=== PATIENT | female | born 1990 | race Native Hawaiian/Other Pacific Islander ===

== ENCOUNTER 2018-02-11 23:25 | Inpatient (IN) ==
[2018-02-11] MEDS ORDERED: LR 1,000 ML IV SCH (23:45)
[2018-02-11] MEDS ORDERED: AMPICILLIN 2 GM/NS 2 GM/100 ML IVPB IV ONE (23:58)
--- NOTE | 2018-02-12 00:26 | H&P REVIEW ---
H&P Update H&P Review: H&P was reviewed and patient was examined, No change has occurred in the patient's condition Document any changes: Triage H&P reviewed from earlier. Patient discharged to home at 9:15pm. Contractions on monitoring but no cervical change as still at 2 /70/-2 and mid position. Patient wanted to go home and come back if stronger. States went home, walked some and about 10:30pm thinks her water broke as she "felt wet." States her contractions are now a lot stronger and hurting. Good movement. No vaginal bleeding. Cousin brought her back in. On my exam no leak with valsalva and no pooling. On exam I do NOT feel bag of water. Head well applied. Patient is 3-4/80 and -1 station. Cervix is anterior. There was no return of fluid with check. ROM + sent and positive. Contractions now about 2-3 min apart. FHT's 130's reactive, moderate variability with accels. Occasional what appears to be early decelerations noted. Transfer to room. GBS is still pending - obtained at prior visit. PCN for GBS prophalaxis started. Expectant management. Patient is considering an epidural but wants to talk to her family about it.
[2018-02-12] MEDS ORDERED: KEFZOL 1 GM/D5W 1 GM/50 ML IVPB IV PRN (00:32)
[2018-02-12] MEDS ORDERED: TYLENOL PO PRN (00:32)
[2018-02-12] MEDS ORDERED: ZOFRAN IV PRN (00:32)
[2018-02-12] MEDS ORDERED: REGLAN PO ONE (00:32)
[2018-02-12] MEDS ORDERED: STADOL IV PRN (00:32)
[2018-02-12] MEDS ORDERED: PEPCID PO PRN (00:32)
[2018-02-12] MEDS ORDERED: PEPCID IV PRN (00:32)
[2018-02-12] MEDS ORDERED: PEPCID PO ONE (00:32)
[2018-02-12] MEDS ORDERED: SODIUM CHLORIDE 0.9% INJ SCH (00:45)
[2018-02-12] MEDS ORDERED: LR 1,000 ML IV SCH (00:45)
[2018-02-12] MEDS ORDERED: REGLAN IV ONE (00:47)
[2018-02-12] MEDS ORDERED: BICITRA PO ONE (00:47)
[2018-02-12] MEDS ORDERED: FENTANYL-BUPIV-NS 2 MCG-0.1% 200 ML EPIDURAL SCH (01:00)
[2018-02-12] MEDS: AMPICILLIN 1 GM/NS 1 GM/50 ML IVPB IV SCH ×2 (04:14→08:56)
--- NOTE | 2018-02-12 06:24 | OB/GYN PROGRESS NOTE ---
Progress Note OB - . OB Progress Note: Vital Signs - 24 hr 02/11/18 23:32 Temperature 97.2 F L Pulse Rate 74 Respiratory Rate 18 Blood Pressure 114/63 Laboratory Results - last 24 hr 02/11/18 23:35 Membranes Rupture POSITIVE patient with epidural. bearing down. Last check by nursing 9 cm on my exam moulding present and still with rim. Encouraged patient to breathe through and relax and why. FHT's with moderate variability. Occasional variable decelerations noted but overall reactive and reassuring. 15 min period where patient moving and not tracing well but nursing could hear heart tones prior to my check. Patient positioned and encouragement given for breathing and trying to relax.
[2018-02-12] MEDS: PITOCIN 30 UNITS/NS 30 UNIT/500 ML IV.SOLN IV SCH ×2 (07:01→07:49)
[2018-02-12] MEDS ORDERED: XYLOCAINE-MPF 1% INJ ONE (07:07)
[2018-02-12] MEDS ORDERED: MOTRIN PO PRN (07:51)
[2018-02-12] MEDS ORDERED: BENADRYL IV PRN (07:51)
[2018-02-12] MEDS ORDERED: XYLOCAINE-MPF 1% INJ PRN (07:51)
[2018-02-12] MEDS ORDERED: HYDROXYZINE IM PRN (07:51)
[2018-02-12] MEDS ORDERED: M-M-R II VACCINE SUBQ ONE (07:51)
[2018-02-12] MEDS ORDERED: ATARAX PO PRN (07:51)
[2018-02-12] MEDS ORDERED: PERI MEDS (DERMOPLAST/NUPERCAINAL/TUCKS) MISC PRN (07:51)
[2018-02-12] MEDS ORDERED: BOOSTRIX VACCINE IM ONE (07:51)
[2018-02-12] MEDS ORDERED: CYTOTEC PO PRN (07:51)
[2018-02-12] MEDS ORDERED: AMBIEN PO PRN (07:51)
[2018-02-12] MEDS ORDERED: MINERAL OIL PO PRN (07:51)
[2018-02-12] MEDS ORDERED: BENADRYL PO PRN (07:51)
[2018-02-12] MEDS ORDERED: PITOCIN IM PRN (07:51)
[2018-02-12] MEDS ORDERED: PITOCIN 30 UNITS/NS 30 UNIT/500 ML IV.SOLN IV SCH (08:00)
--- NOTE | 2018-02-12 08:22 | OPERATIVE NOTE ---
PROCEDURE DATE: 02/12/2018 DELIVERY SUMMARY: The patient is a 27-year-old 1, para 0, from [facility], who arrived in [place] approximately 2 months ago with her . She has had absolutely no care. She has not seen an emergency room physician or had ultrasound for this . She believes her period was the beginning of May and thinks that she is due "this month." She presented on 02/11/2018 in the evening complaining of some spotting with wiping and some minimal cramping. She was watched through labor checks x2 with contractions approximately every 2 to 5 minutes apart with a category 1 tracing. She remained 2/70/-2 station through 2 checks, decided she wanted to go home for her contractions to get stronger and then come back in. Her workup at that time consisted of panel, which parts are still pending. A UA, which showed nitrites positive, for which she was given a prescription for Keflex to fill t.i.d. 500 mg for 7 days, and instructed to follow up with Dr. Oneal. Ultrasound was obtained on Labor and Delivery revealing a 38 week 3 day gestation with NEAL of 11, cephalic presentation. Only notable comment was a grade 3 placenta. No gross anatomic abnormalities were noted. The patient was discharged to home, however, returned approximately 2 hours later, stating that her water had broken. Spontaneous rupture of membranes was at 10:30 p.m. Upon reexamination, she was 3/80 and -1 station. I did not feel a bag of membranes. There was no active return of flow. ROM + was positive. Throughout her labor, there is noted to be mild light meconium. GBS prophylaxis with penicillin was started. Her GBS culture from her earlier triage was still pending. Her labor progressed on its own. There was no Pitocin augmentation. She ended up getting an epidural at 2 a.m. She progressed on her own and was found to be complete at 6:45 a.m. and approximately +2 station. She pushed very well and underwent a spontaneous vaginal delivery at 6:52 a.m. of a male infant in the SHANI position. There was a cord around the neck x1, which was tight, but able to be reduced. There was no active cry on the field. Therefore, the 's cord was clamped and cut and handed off to the waiting nurses very quickly as the baby had grimace and heart rate, but was very flaccid and no tone. scores were 3 and 9 at 1 and 5 minutes respectively. I did do arterial blood gas on a closed cord, arterial pH of 7.17, base excess - 6.5. The placenta delivered at 7:01 a.m. Exploration of the uterus occurred. No retained POC were palpated. The placenta itself appeared somewhat small. Placenta to be sent to pathology. Uterus firmed up nicely post delivery with IV Pitocin and massage. There was a first-degree right labial laceration that was repaired with 3-0 chromic suture and that coalesced into a right sided vaginal/ posterior introitus tear that was first-degree as well. This was incorporated with sutures with 2- 0 Vicryl. Excellent hemostasis occurred. Excellent reapproximation. The patient had some mild discomfort with the last 2 stitches. Tolerated well and therefore no lidocaine was injected. Both mother and baby were doing well post delivery. Uterus was firm. EBL was estimated at approximately 250 mL. cc: Deidre Borges MD MTDD
[2018-02-12 08:55] LABS: BLOOD TYPE ARTERIAL; SAMPLE BLOOD
[2018-02-12] MEDS: KEFLEX PO SCH ×3 (10:23→22:49)
[2018-02-12] MEDS ORDERED: PERICOLACE PO SCH (21:00)
[2018-02-13] MEDS: KEFLEX PO SCH ×3 (04:12→19:00)
[2018-02-13 07:03] LABS: BASO# 0.04 X1000 (0.0-0.2); BASO% 0.2 % (0.0-0.8); EOS# 0.68 X1000 (0.0-0.7); EOS% 3.4 % (0.0-10.0); HEMATOCRIT 32.5 % (37.0-47.0); HEMOGLOBIN 10.7 g/dL (12.0-16.0); IMM GRAN# 0.06 X1000 (0.0-0.04); IMM GRAN% 0.3 % (0.0-0.5); LYMPH# 2.68 X1000 (1.2-3.4); LYMPH% 13.2 % (20.5-51.1); MCH 26.2 PG (27-31); MCHC 32.9 g/dL (33-37); MCV 79.7 FL (81-99); MONO# 1.12 X1000 (0.11-0.59); MONO% 5.5 % (1.7-9.3); MPV 9.8 FL (7.4-10.4); NEUT% 77.4 % (42.2-75.2); PLT 319 X1000 (130-400); RBC 4.08 XMIL (4.2-5.4); RDW 13.1 % (11.5-14.5); WBC 20.28 X1000 (4.8-10.8)
--- NOTE | 2018-02-13 07:40 | PROGRESS NOTE ---
DATE: 02/13/2018 day #1. SUBJECTIVE: No complaints. OBJECTIVE: Vital Signs: Stable. Afebrile. General Appearance: The patient is still quite sleepy, not particularly interested in cooperating with examination today. LABORATORY DATA: 1. Hemoglobin is pending. 2. Urine culture is pending. ASSESSMENT: 1. Doing well day #1. 2. Urinary tract infection. PLAN: Check hemoglobin and urine culture results. Plan to discharge home on oral antibiotics at discharge, which will probably be tomorrow. cc: MD Deidre Gay MD
[2018-02-13 09:44] LABS: EOS 3 % (1-10); LYMPHS 14 % (21-51); MONO 5 % (1-9); SEGS 78 % (42-75)
[2018-02-14] MEDS: KEFLEX PO SCH ×3 (04:02→10:09)
--- NOTE | 2018-02-14 07:04 | PROGRESS NOTE ---
DATE: 02/14/2018 day #2. SUBJECTIVE: No complaints. Denies PIH, orthostatic symptoms. OBJECTIVE: Vital Signs: Temp 97.2 degrees, heart rate 71, respirations 18, blood pressure 96/51, and 100% on room air. General: Alert, oriented, in no acute distress. Pulmonary: Clear to auscultation bilaterally. CV: Regular rate and rhythm. Abdomen: Soft, nondistended, nontender. Fundus: Firm. Normal lochia. Extremities: No clubbing, cyanosis, or edema. ASSESSMENT: Ms. Pillai is a 27-year-old day #2 status post spontaneous vaginal delivery complicated by no care. The patient is doing well. She was diagnosed with a urinary tract infection on admission, has been treated with oral Keflex, and will be discharged home on Keflex. PLAN: 1. Discharge home. 2. Follow up with Dr. Oneal in 6 weeks for care. cc: MD Deidre Harry MD
[2018-02-14 07:12] VITALS: BP 106/64
[2018-02-14] MEDS ORDERED: FLU VACCINE IM ONE (09:56)
== END 2018-02-14 11:30 | disposition home or self-care (01) | DRG 806 ==
LOC: P.OPLD 23:25 → P.LD 23:28
PROVIDERS: ADMIT Obstetrics & Gynecology; ATTEND Obstetrics & Gynecology
CPT/HCPCS: 36415; 82805; 84112; 85025; 87077; 87088; 87186; 90686; 90715; A9270; J0290; J2590; J2765; J7120